=== PATIENT | male | born 1980 | race Caucasian/White ===

== ENCOUNTER 2023-08-02 14:27 | Emergency (ER) | payer OTHER ==
[~2023-08-02] VITALS: Ht 170.2 cm; Wt 99.8 kg
[2023-08-02] MEDS ORDERED: KETOROLAC TROMETHAMINE 15 MG/ML VIAL ONE (15:58)
[2023-08-02] MEDS ORDERED: KETOROLAC TROMETHAMINE INJ 30 MG/ML VIAL IM ONE (16:00)
[2023-08-02] MEDS ORDERED: POLY10DR OP (16:10)
[2023-08-02] MEDS ORDERED: KETOROLAC TROMETHAMINE INJ 30 MG/ML VIAL ONE (16:12)
[2023-08-02 16:23] VITALS: BP 128/79; TEMP 98.2; O2SAT 99
== END 2023-08-02 16:24 | disposition home or self-care (01) ==
LOC: ER 14:32
DX: H57.89 Other specified disorders of eye and adnexa (principal); Z60.2 Problems related to living alone
CPT/HCPCS: 99284; 96372; J1885; J7030